=== PATIENT | female | born 1970 | race Caucasian/White ===

== ENCOUNTER 2024-01-09 08:26 | Day surgery (SDC) | payer OTHER ==
[~2024-01-09] VITALS: Ht 157.5 cm; Wt 75.7 kg
[2024-01-09] MEDS ORDERED: fentaNYL citrate 0.05 MG/ML VIAL ONE (10:07)
[2024-01-09] MEDS: fentaNYL citrate 0.05 MG/ML VIAL IVP ONE (10:44)
[2024-01-09] MEDS: LIDOCAINE 2% 100 MG/5 ML UJET TP ONE (10:49)
== END 2024-01-09 11:49 | disposition home or self-care (01) ==
LOC: MDS 08:26 → MMU 08:27 → MDS 11:49
PROVIDERS: ATTEND Internal Medicine Gastroenterology
DX: Z12.11 Encounter for screening for malignant neoplasm of colon (principal); K57.30 Diverticulosis of large intestine without perforation or abscess without bleeding; Z98.890 Other specified postprocedural states
CPT/HCPCS: 45378; J3010